=== PATIENT | male | born 1965 | race American Indian/Alaskan Native ===

== ENCOUNTER 2023-04-14 22:20 | Emergency (ER) | payer MEDICAID, SELFPAY ==
--- NOTE | ~2023-04-14 | XR_ITS ---
EXAMINATION: XR CHEST CLINICAL INFORMATION: Cough, rib pain. COMPARISON: None available. TECHNIQUE: Frontal view of the chest was obtained. FINDINGS: Normal appearance of the cardiomediastinal silhouette. No focal airspace opacities, pleural effusion or pneumothorax. No acute osseous findings. Visualized upper abdomen is within normal limits. XR/XR chest 1V IMPRESSION: No acute cardiopulmonary findings. No acutely displaced rib fractures.
[2023-04-14 22:29] VITALS: BP 168/118; PULSE 76; RESP 18; TEMP 36.9; O2SAT 97; BMI 33.2
--- NOTE | 2023-04-14 22:47 | MHC.EDTECH ---
Patient brought into triage area,Strep,and Sars/Flu/RSV obtained and sent to lab. Patient brought back to waiting area.
[2023-04-14 23:15] LABS: IDNOW Serial# 08D9AD1C; Strep A Nucleic Acid Negative (Negative)
[2023-04-14 23:42] LABS: Influenza A PCR NEGATIVE (Negative); Influenza B PCR NEGATIVE (Negative); Resp Syncy Virus RNA Qual PCR NEGATIVE (Negative); SARS COV2 PCR INHOUSE NEGATIVE (Negative)
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
[2023-04-15 04:44] LABS: Basophils Percent Auto 0.5 % (0-2); Eosinophils Absolute Auto 0.4 X10*3/uL (0.0-0.4); Eosinophils Percent Auto 4.8 % (0-4); Hematocrit 42.9 % (42.0-52.0); Hemoglobin 14.9 g/dl (14.0-18.0); Imm Gran Abs Auto 0.02 X10*3/uL (0.00-0.03); Imm Gran Pct Auto 0.2 % (0.0-0.4); Lymphocytes Absolute Auto 2.3 X10*3/uL (1.2-4.9); Lymphocytes Percent Auto 27.6 % (20-40); MANUAL DIFF FLAG NO; Mean Corpuscular HGB Conc 34.7 g/dl (31.0-36.0); Mean Corpuscular Hemoglobin 29.7 pg (27.0-33.0); Mean Corpuscular Volume 85.6 fL (80.0-98.0); Mean Platelet Volume 9.1 fL (9.4-12.4); Monocytes Absolute Auto 0.8 X10*3/uL (0.1-1.2); Monocytes Percent Auto 9.6 % (2-11); Neutrophils Absolute Auto 4.8 x10*3/uL (2.0-8.3); Neutrophils Percent Auto 57.3 % (45-73); Platelet Count 278 X10*3/uL (160-400); Red Blood Count 5.01 X10*6/uL (4.60-5.80); Red Cell Distribution Width 12.1 % (11.0-16.0); White Blood Count 8.3 X10*3/uL (4.8-10.8)
[2023-04-15 04:57] LABS: Alanine Aminotransferase 38 U/L (0-40); Albumin Level 4.3 g/dL (3.5-5.0); Alkaline Phosphatase 53 U/L (39-117); Anion Gap 13 (12-20); Aspartate Amino Transferase 28 U/L (5-37); Bilirubin Total 0.4 mg/dL (0.0-1.0); Blood Urea Nitrogen 10 mg/dL (9-16); Calcium 9.3 mg/dL (8.4-10.2); Carbon Dioxide 25 mmol/L (22-29); Chloride 107 mmol/L (96-108); Creatinine Clr Calc Pharmacy 112.8; Estimated Glomerular Filt Rate > 60; Glucose Random 102 mg/dL (60-115); Potassium 3.4 mmol/L (3.3-5.1); Sodium 142 mmol/L (135-145); Total Protein 7.3 g/dL (6.5-8.0)
--- NOTE | 2023-04-15 05:04 | PC.NURSE ---
Pt left stating he has to go to work at this time. Pt out of department with steady gait and all personal belongings in no apparent distress.
== END 2023-04-15 05:07 | disposition left against medical advice (07) ==
PROVIDERS: Emergency Provider Emergency Medicine
DX: R05.9 Cough, unspecified (principal); R10.9 Unspecified abdominal pain; R07.81 Pleurodynia; Z20.822 Contact with and (suspected) exposure to COVID-19; Z20.828 Contact with and (suspected) exposure to other viral communicable diseases; Z79.899 Other long term (current) drug therapy
CPT/HCPCS: 0241U; 36415; 71045; 80053; 85025; 87651; 99283; 99284

== ENCOUNTER 2023-06-23 14:31 | Emergency (ER) | payer MEDICAID, SELFPAY ==
--- NOTE | ~2023-06-23 | CT_ITS ---
CT HEAD WITHOUT IV CONTRAST CT CERVICAL SPINE WITHOUT IV CONTRAST INDICATION: Fall with head strike and pain. COMPARISON: None available. TECHNIQUE: Multidetector CT acquisitions of the head and cervical spine were obtained without IV contrast. Multiplanar reformats were acquired and utilized for image interpretation. This CT examination was performed using dose optimization techniques as appropriate, variously including the following: *Automated exposure control *Adjustment of mA and/or kV according to patient size (this includes techniques or standardized protocols for targeted exams where dose is matched to indication/reason for exam; i.e. extremities or head) *Use of iterative reconstruction technique FINDINGS: HEAD: There is no intracranial hemorrhage, hydrocephalus, extra-axial surface collection, midline shift, or other herniation pattern. [place] to white matter differentiation is diffusely maintained without evidence of an evolved acute territorial infarct. The basilar cisterns are preserved. No significant soft tissue abnormality. No acute osseous abnormality. The paranasal sinuses and the mastoid air cells are well aerated. CERVICAL SPINE: There is degenerative retrosubluxation of C3 on C4 and there is degenerative anterior subluxation of C6 on C7. There is multilevel hypertrophic facet arthropathy. Moderate to severe degenerative disc disease at C3-C4 and C5-C6. Hypertrophic degenerative changes involving the atlantodental interval. Uncovertebral joint spurring and facet arthropathy result in severe left and moderate right C3-C4 and moderate left C5-C6 bony foraminal stenosis. There is no prevertebral soft tissue swelling. Imaged lung apices are clear. CT/CT cervical spine wo IV con IMPRESSION: - No acute intracranial abnormality. - No acute osseous abnormality within the cervical spine. Cervical spondylosis.
--- NOTE | ~2023-06-23 | XR_ITS ---
EXAMINATION: Left humerus. Left hand wrist.. CLINICAL INFORMATION: Pain, injury. COMPARISON: None available. TECHNIQUE: AP and lateral views of the left humerus. 4 views left hand. FINDINGS: LEFT HUMERUS: There is no visible fracture or bony abnormality involving left humerus. The glenohumeral humeral joint space and partially visualized elbow joint appears unremarkable. The soft tissues are normal. LEFT HAND/WRIST: There is no visible acute fracture, dislocation or subluxation. The soft tissues are normal. XR/XR humerus LT IMPRESSION: Unremarkable left humerus. Unremarkable left hand wrist.
--- NOTE | ~2023-06-23 | XR_ITS ---
EXAMINATION: Left humerus. Left hand wrist.. CLINICAL INFORMATION: Pain, injury. COMPARISON: None available. TECHNIQUE: AP and lateral views of the left humerus. 4 views left hand. FINDINGS: LEFT HUMERUS: There is no visible fracture or bony abnormality involving left humerus. The glenohumeral humeral joint space and partially visualized elbow joint appears unremarkable. The soft tissues are normal. LEFT HAND/WRIST: There is no visible acute fracture, dislocation or subluxation. The soft tissues are normal. XR/XR hand wrist LT IMPRESSION: Unremarkable left humerus. Unremarkable left hand wrist.
--- NOTE | ~2023-06-23 | CT_ITS ---
CT HEAD WITHOUT IV CONTRAST CT CERVICAL SPINE WITHOUT IV CONTRAST INDICATION: Fall with head strike and pain. COMPARISON: None available. TECHNIQUE: Multidetector CT acquisitions of the head and cervical spine were obtained without IV contrast. Multiplanar reformats were acquired and utilized for image interpretation. This CT examination was performed using dose optimization techniques as appropriate, variously including the following: *Automated exposure control *Adjustment of mA and/or kV according to patient size (this includes techniques or standardized protocols for targeted exams where dose is matched to indication/reason for exam; i.e. extremities or head) *Use of iterative reconstruction technique FINDINGS: HEAD: There is no intracranial hemorrhage, hydrocephalus, extra-axial surface collection, midline shift, or other herniation pattern. [place] to white matter differentiation is diffusely maintained without evidence of an evolved acute territorial infarct. The basilar cisterns are preserved. No significant soft tissue abnormality. No acute osseous abnormality. The paranasal sinuses and the mastoid air cells are well aerated. CERVICAL SPINE: There is degenerative retrosubluxation of C3 on C4 and there is degenerative anterior subluxation of C6 on C7. There is multilevel hypertrophic facet arthropathy. Moderate to severe degenerative disc disease at C3-C4 and C5-C6. Hypertrophic degenerative changes involving the atlantodental interval. Uncovertebral joint spurring and facet arthropathy result in severe left and moderate right C3-C4 and moderate left C5-C6 bony foraminal stenosis. There is no prevertebral soft tissue swelling. Imaged lung apices are clear. CT/CT head/brain wo IV con IMPRESSION: - No acute intracranial abnormality. - No acute osseous abnormality within the cervical spine. Cervical spondylosis.
[2023-06-23 14:33] VITALS: BP 189/90; PULSE 84; RESP 17; TEMP 36.8; O2SAT 99; BMI 33.2
--- NOTE | 2023-06-23 14:33 | ED.GENADULT ---
HPI - General Adult General Chief complaint: Extremity Injury, Upper Stated complaint: Arm injury @ work Time Seen by Provider: 06/23/23 15:47 Source: patient Mode of arrival: ambulatory Limitations: no limitations History of Present Illness HPI narrative: Patient is a 57 year old assigned male at with no reported medical history presenting to the emergency department today with left arm pain after a fall. Patient states that he fell out of a tractor trailer at work and landed on his left arm. Patient denies any head strike, loss of consciousness, dizziness, lightheadedness, abdominal pain, nausea, vomiting, fever, chills, blurry vision, double vision, loss of vision, chest pain, difficulty breathing, shortness of breath, back pain, night sweats, pain with urination, increased urinary frequency, increased urinary urgency, blood in his urine or stool, syncope or a near syncopal episode, bowel incontinence, bladder incontinence, bowel retention, bladder retention, or any other complaints at this time. Onset (ago): hour(s) Location: left and upper extremity Radiation: non-radiation Severity: mild Severity scale (1-10): 4 Quality: aching and dull Pain Consistency: constant Relieving factors: none Exacerbating factors: none Associated symptoms: denies other symptoms Treatments prior to arrival: none Related Data Allergies Allergy/AdvReac Type Severity Reaction Status Date / Time No Known Allergies Allergy Verified 04/14/23 22:32 Review of Systems Constitutional: Constitutional: Reports no additional constitutional complaints, Denies chills, Denies fever(s) and Denies night sweats Eyes: Eyes: Reports no additional eye complaints, Denies blurry vision, Denies change in vision, Denies diplopia, Denies eye discharge, Denies loss of vision and Denies eye pain ENT: Denies dizziness Cardiovascular: Cardiovascular: Reports no additional cardiovascular complaints, Denies chest pain, Denies lightheadedness, Denies Loss of Consciousness and Denies dyspnea Respiratory: Respiratory: Reports no additional respiratory complaints and Denies dyspnea Gastrointestinal: Gastrointestinal: Reports no additional gastrointestinal complaints, Denies abdominal pain, Denies melena, Denies hematochezia, Denies change in bowel habits and Denies change in stool character Genitourinary: Genitourinary: Reports no additional male genitourinary complaints, Denies hematuria, Denies oliguria, Denies difficulty urinating, Denies dysuria, Denies urinary frequency, Denies urinary hesitancy, Denies urinary incontinence and Denies urinary urgency Musculoskeletal: Musculoskeletal: Reports no additional musculoskeletal complaints, Denies numbness and Denies tingling Comments: left arm and hand pain Neurologic: Denies dizziness, Denies loss of vision, Denies numbness and Denies tingling Psychiatric: Psychiatric: Reports no additional psychiatric complaints Endocrine: Endocrine: Reports no additional endocrine complaints Hematologic/Lymphatic: Hematologic/Lymphatic: Reports no additional hematologic/lymphatic complaints Allergic/Immunologic: Allergic/Immunologic: Reports no additional allergic/immunologic complaints FOR[facility]LY [facility] Past Medical History Attestation statement: The following information was validated with the patient. Source: old records reviewed and nursing notes reviewed Social History Social History Advance Directives: No Advance Directives Information Provided: No Physical Exam ED Vital Signs: Vital Signs - 24 hr 06/23/23 14:33 Temperature 98.3 F Pulse Rate 84 Respiratory Rate 17 Blood Pressure 189/90 H Pulse Oximetry 99 Oxygen Delivery Method Room Air BMI result Body Mass Index 33.2 Const General: cooperative, no acute distress, alert and awake Nutritional Appearance: well nourished Orientation/consciousness: patient oriented x3 Limitations: no limitations HENMT Head: Yes normal to inspection and Yes atraumatic Ears: hearing grossly normal bilaterally and external ears normal General nose exam: Normal external nose present, no nasal discharge noted and no epistaxis Face and sinus: Yes normal facial exam, No abrasion and No laceration Mouth: Normal oral and palatal mucosa present, no drooling and no muffled voice Eyes General: appearance normal, both eyes and all related structures Periorbital: periorbital findings normal Eyelids: Yes eyelids normal Conjunctivae: conjunctivae normal Pupils: Equal, round and reactive pupils present EOM: EOMs intact bilaterally Neck Neck: Yes normal visual inspection, Yes full ROM and Yes no lymphadenopathy Chest Chest palpation & inspection: normal inspection of the chest Resp Effort & Inspection: normal respiratory effort and able to speak in complete sentences GI Inspection: Yes normal to inspection Neuro General: patient oriented x3 and moves all extremities Cranial nerves: Yes Equal, round and reactive pupils present Cognition (Neuro): normal cognition Motor exam (neuro): 5/5 motor strength present throughout Sensory Exam: Normal double simultaneous stimulation for sensation Coordination: [id number] test normal Extrem General: Yes normal to inspection, Yes full ROM and Yes capillary refill normal Psych Appearance: grossly normal Mental Status: mental status grossly normal Affect: normal affect Attitude: cooperative Thought process: Normal thought process present Thought content: Normal thought content present Insight: Good insight present (Psych) Course Course Course Narrative: RME performed by Funmilayo Naqvi PA-C. Patient is a 57 year old assigned male at presenting to the emergency department with left arm pain after a work injury. Detailed physical exam and review of systems are deferred to the manager net. Imaging. Patient placed back in the waiting room pending room availability and results. Medical Decision Making Medical Decision Making MDM Narrative: Patient is a 57 year old assigned male at with no reported medical history presenting to the emergency department today with left arm pain. Patient's physical exam was unremarkable. Patient's left humerus, hand, and wrist x-rays showed no acute process. Patient's head and C-Spine CTs were negative. I explained my physical exam findings as well as all test results to the patient. I answered all questions asked by the patient. I stressed the importance of the patient taking his medication as prescribed. I stressed the importance of the patient following up with his primary care provider. I stressed the importance of the patient returning to the emergency department immediately if his symptoms were to worsen or if he were to develop any dizziness, shortness of breath, difficulty breathing, chest pain, blurry vision, loss of vision, nausea, vomiting, abdominal pain, fever, chills, back pain, or any other complaints. Patient verbalized agreement and understanding with this treatment plan and discharge. Differential Diagnosis Differential Diagnoses: The differential diagnosis associated with the presentation includes Left arm pain Left arm sprain Left arm strain Fall Admission/Observation Consideration of admission/observation: Escalation of care including admission/observation considered Patient would have been admitted to the hospital had his work up had any findings where hospital admission was appropriate and his clinical presentation warranted hospital admission. Independent Interpretation I performed an independent interpretation of an: Plain X-Ray and CT Scan Interpretation: My interpretation is in agreement with the radiologist's impression of these imaging studies. EXAMINATION: Left humerus. Left hand wrist.. CLINICAL INFORMATION: Pain, injury. COMPARISON: None available. TECHNIQUE: AP and lateral views of the left humerus. 4 views left hand. FINDINGS: LEFT HUMERUS: There is no visible fracture or bony abnormality involving left humerus. The glenohumeral humeral joint space and partially visualized elbow joint appears unremarkable. The soft tissues are normal. LEFT HAND/WRIST: There is no visible acute fracture, dislocation or subluxation. The soft tissues are normal. XR/XR hand wrist LT IMPRESSION: Unremarkable left humerus. Unremarkable left hand wrist. Dictated By: Nate López MD Signed By: Electronically signed by Nate López MD 06/23/[address] HEAD WITHOUT IV CONTRAST CT CERVICAL SPINE WITHOUT IV CONTRAST INDICATION: Fall with head strike and pain. COMPARISON: None available. TECHNIQUE: Multidetector CT acquisitions of the head and cervical spine were obtained without IV contrast. Multiplanar reformats were acquired and utilized for image interpretation. This CT examination was performed using dose optimization techniques as appropriate, variously including the following: *Automated exposure control *Adjustment of mA and/or kV according to patient size (this includes techniques or standardized protocols for targeted exams where dose is matched to indication/reason for exam; i.e. extremities or head) *Use of iterative reconstruction technique FINDINGS: HEAD: There is no intracranial hemorrhage, hydrocephalus, extra-axial surface collection, midline shift, or other herniation pattern. [place] to white matter differentiation is diffusely maintained without evidence of an evolved acute territorial infarct. The basilar cisterns are preserved. No significant soft tissue abnormality. No acute osseous abnormality. The paranasal sinuses and the mastoid air cells are well aerated. CERVICAL SPINE: There is degenerative retrosubluxation of C3 on C4 and there is degenerative anterior subluxation of C6 on C7. There is multilevel hypertrophic facet arthropathy. Moderate to severe degenerative disc disease at C3-C4 and C5-C6. Hypertrophic degenerative changes involving the atlantodental interval. Uncovertebral joint spurring and facet arthropathy result in severe left and moderate right C3-C4 and moderate left C5-C6 bony foraminal stenosis. There is no prevertebral soft tissue swelling. Imaged lung apices are clear. CT/CT cervical spine wo IV con IMPRESSION: - No acute intracranial abnormality. - No acute osseous abnormality within the cervical spine. Cervical spondylosis. Dictated By: Flaco Pal MD Signed By: Electronically signed by Flaco Pal MD 06/23/23 1529 Radiology Impression Discussion of test interpretation with radiology: I have reviewed the radiologist's reading. Discharge Plan Discharge Clinical Impression: Fall Patient Disposition: Home, Self-Care Instructions: Fall Prevention (ED) Additional Instructions: Follow up with your primary care provider. Return to the emergency department immediately if your symptoms worsen or if you develop any dizziness, shortness of breath, difficulty breathing, chest pain, blurry vision, loss of vision, nausea, vomiting, abdominal pain, fever, chills, back pain, or any other complaints. Referrals: [facility] [place] [facility] [[place] Group] (Call to establish and follow up with a primary care provider. If you already have a primary care provider, please follow up with them.) [facility] [place] [facility] [Provider Group] (Call to establish and follow up with a primary care provider. If you already have a primary care provider, please follow up with them.) [facility] [place] [facility] [Provider Group] (Call to establish and follow up with a primary care provider. If you already have a primary care provider, please follow up with them.) Print Language: Pashto
== END 2023-06-23 16:01 | disposition home or self-care (01) ==
PROVIDERS: Emergency Provider Emergency Medicine
DX: Z04.3 Encounter for examination and observation following other accident (principal); M79.602 Pain in left arm; R51.9 Headache, unspecified; Z91.81 History of falling
CPT/HCPCS: 70450; 72125; 73060; 73110; 73130; 99282; 99284

== ENCOUNTER 2023-12-08 13:44 | Outpatient (AMB) | payer MEDICAID, SELFPAY ==
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
[2023-12-08 13:49] VITALS: BP 150/92; PULSE 86; RESP 12; O2SAT 99; BMI 31.2
== END 2023-12-08 14:34 | disposition home or self-care (01) ==
PROVIDERS: PCP Internal Medicine; Visit Provider Internal Medicine
DX: M25.511 Pain in right shoulder (principal); G89.29 Other chronic pain; M15.0 Primary generalized (osteo)arthritis; M50.30 Other cervical disc degeneration, unspecified cervical region; I10 Essential (primary) hypertension; E78.5 Hyperlipidemia, unspecified; Z13.0 Encounter for screening for diseases of the blood and blood-forming organs and certain disorders involving the immune mechanism; Z13.228 Encounter for screening for other metabolic disorders; Z76.89 Persons encountering health services in other specified circumstances
CPT/HCPCS: 99204

== ENCOUNTER 2023-12-08 14:35 | Outpatient (REF) | payer MEDICAID, SELFPAY ==
[2023-12-08 17:27] LABS: MANUAL DIFF FLAG NO
[2023-12-08 17:30] LABS: Basophils Absolute Auto 0.1 X10*3/uL (0.0-0.2); Basophils Percent Auto 0.8 % (0-2); Eosinophils Absolute Auto 0.2 X10*3/uL (0.0-0.4); Eosinophils Percent Auto 1.8 % (0-4); Hemoglobin 15.9 g/dl (14.0-18.0); Imm Gran Abs Auto 0.02 X10*3/uL (0.00-0.03); Imm Gran Pct Auto 0.2 % (0.0-0.4); Lymphocytes Absolute Auto 1.8 X10*3/uL (1.2-4.9); Lymphocytes Percent Auto 19.3 % (20-40); Mean Corpuscular HGB Conc 34.6 g/dl (31.0-36.0); Mean Corpuscular Hemoglobin 29.9 pg (27.0-33.0); Mean Corpuscular Volume 86.5 fL (80.0-98.0); Mean Platelet Volume 9.9 fL (9.4-12.4); Monocytes Absolute Auto 0.8 X10*3/uL (0.1-1.2); Monocytes Percent Auto 8.7 % (2-11); Neutrophils Absolute Auto 6.4 x10*3/uL (2.0-8.3); Neutrophils Percent Auto 69.2 % (45-73); Platelet Count 334 X10*3/uL (160-400); Red Blood Count 5.32 X10*6/uL (4.60-5.80); Red Cell Distribution Width 12.1 % (11.0-16.0); White Blood Count 9.2 X10*3/uL (4.8-10.8)
[2023-12-08 17:39] LABS: Estimated Average Glucose 117 mg/dL; Hemoglobin A1c % 5.7 % (<6.0)
[2023-12-08 17:58] LABS: Alanine Aminotransferase 40 U/L (0-40); Albumin Level 4.7 g/dL (3.5-5.0); Alkaline Phosphatase 68 U/L (39-117); Anion Gap 16 (12-20); Aspartate Amino Transferase 27 U/L (5-37); Bilirubin Total 0.8 mg/dL (0.0-1.0); Blood Urea Nitrogen 12 mg/dL (9-16); Carbon Dioxide 22 mmol/L (22-29); Chloride 109 mmol/L (96-108); Cholesterol 191 mg/dL (<200); Estimated Glomerular Filt Rate > 60; Glucose Random 94 mg/dL (60-115); HDL Cholesterol 31 mg/dL (>40); LDL Cholesterol Calculated 123 mg/dL (<100); Potassium 4.1 mmol/L (3.3-5.1); Sodium 143 mmol/L (135-145); Total Protein 7.6 g/dL (6.5-8.0); Triglycerides 187 mg/dL (<150)
[2023-12-08 18:18] LABS: Prostate Specific Antigen 0.96 ng/mL (<0.05-4.0)
[2023-12-13 10:53] LABS: Cyclic Citrullinated Peptide <16 UNITS
== END 2023-12-08 14:36 | disposition home or self-care (01) ==
LOC: HO.WFDLDS 14:35
PROVIDERS: Visit Provider Internal Medicine
DX: E78.5 Hyperlipidemia, unspecified (principal); M15.9 Polyosteoarthritis, unspecified; I10 Essential (primary) hypertension; Z13.0 Encounter for screening for diseases of the blood and blood-forming organs and certain disorders involving the immune mechanism; Z13.228 Encounter for screening for other metabolic disorders
CPT/HCPCS: 36415; 80053; 80061; 83036; 84153; 85025; 86200; 86431

== ENCOUNTER 2024-10-02 21:24 | Emergency (ER) | payer MEDICAID, SELFPAY ==
--- NOTE | ~2024-10-02 | XR_ITS ---
CLINICAL HISTORY: pain 3 views lumbar spine Comparison: None provided Findings: There is straightening of the normal lumbar lordosis. No lumbar spondylolisthesis. No acute fractures or dislocation. Mild degenerative endplate changes are present at the lumbar spine. IMPRESSION: 1. Straightening of the normal lumbar lordosis. This finding is nonspecific and may be positional and/or related to muscle spasm. No acute fracture or dislocation injury identified at the lumbar spine. This document has been electronically signed by: Jairo Anthony MD on 10/02/2024 23:53:34
[2024-10-02 21:26] VITALS: BP 127/75; PULSE 87; RESP 20; TEMP 36.1; O2SAT 96; BMI 31.7
--- NOTE | 2024-10-03 01:16 | ED_ITS ---
HPI - Back Pain/Injury General Chief Complaint: Back Pain/Injury Stated Complaint: lower back pain Time Seen by Provider: 10/03/24 01:16 Source: patient and family () Mode of arrival: ambulatory Limitations: no limitations History of Present Illness ED Provider: Dr. Christoph Albright HPI Narrative: 58-year-old male with a history of hypertension, hyperlipidemia, depression, cervical degenerative joint disease who presents emergency department for evaluation of lower back pain x3 days. Patient does not recount any specific injury but has a very physical job. Patient states 3 days prior he developed a pain in his lower back to the point where it has gotten progressively worse and he is unable to move. He points to his left lower back when asked to localize the pain. He stents describes the pain is a sharp, spasm like pain which is worse with movement. States that the pain shoots up his spine to his neck and down both legs. States that he is feeling very weak in his having difficulty walking secondary to the severity of his pain. The patient states that his pain is currently greater than 10/10. He denies any loss of bowel or bladder control. He denies fever or chills. Patient denies using injection drugs. Patient took his 's prescribed muscle relaxant with no relief his pain. He did not take any other medications. Related Data Home Medications ?Medication ?Instructions ?Recorded ?Confirmed albuterol sulfate 90 mcg/actuation 2 puff inhalation Q 6H 12/08/23 aerosol inhaler (Ventolin HFA) azelastine 137 mcg-fluticasone 50 1 spray intranasal B ID 12/08/23 mcg/spray nasal spray prazosin 1 mg capsule 1 mg PO DAILY 12/08/23 sertraline 100 mg tablet 100 mg PO DAILY 12/08/23 Previous Rx's ?Medication ?Instructions ?Recorded lisinopril 40 mg tablet 40 mg PO DAILY #90 tabs 11/16 07/08 cyclobenzaprine 10 mg tablet 10 mg PO TID PRN muscle p ain or 10/03/24 spasm #20 tabs morphine 15 mg immediate release 15 mg PO Q4-6H PRN pa in #14 tabs 10/03/24 tablet naproxen 500 mg tablet 500 mg PO BID PRN pain 7 day s #14 10/03/24 tabs Allergies Allergy/AdvReac Type Severity Reaction Status Date / Time No Known Allergies Allergy Verified 10/02/24 21:30 Review of Systems Review of Systems: Yes all other systems are reviewed and are negative [facility] Past Medical History [facility] Narrative: Social history: The patient denies tobacco, alcohol and drug use. Patient states that he was in [facility] years And he was released 2 years prior. He currently lives with his in an apartment. Medical History ADHD Surgical History History of appendectomy Family History Family History Other Family history unknown Social History Social History Household Members: Other Housing: Homeless Alcohol intake: never Patient Tobacco Use Status: Never used Tobacco Smoked in Last 30 Days: No e-Cigarette/Vaping Use: Never Used Use of substances other than those prescribed or required for medical reasons: No Advance Directives: No service: No Current occupational status: disabled Current occupational exposures/hazards: No Cognitive needs: No Hearing needs: Yes (L ear ) Vision needs: No Physical Exam Vital Signs: Vital Signs: Last Vital Signs Temp 98.1 F 10/03/24 04:10 Pulse 68 10/03/24 04:10 Resp 16 10/03/24 04:10 BP 154/92 H 10/03/24 04:10 Pulse Ox 98 10/03/24 01:50 O2 Del Method Room Air, Blow By 10/03/24 04:10 BMI result Body Mass Index 31.7 vital signs were normal Exam: General: Awake, alert in no distress Head: Normocephalic, atraumatic EENT: PERRL, Lids normal, sclera normal, conjunctiva normal, nose normal , ears normal, throat without erythema or exudates Neck: Supple, no adenopathy Lung: breath sounds symmetric, no wheezing, rales or rhonchi Chest: symmetric movement, nontender Heart: regular rate and rhythm, normal S1, S2 no murmurs or rubs Abdomen: soft, non-tender, nondistended, normal bowel sounds Back: there is tenderness to palpation of his lumbar sacral vertebrae with no localizing point tenderness, patient has significant tenderness palpation of his lumbar sacral paraspinal muscles on the left with significant spasm of these muscles in only mild tenderness with palpation of these muscles on the right. Patient has positive straight leg raises bilaterally, there is no erythema increased warmth or lesions noted to his skin in his back. Extremities: no deformities, moves all extremities symmetrically Neuro: General:Awake, alert, oriented, normal speech Cranial nerves:cranial nerves intact Strength: Patient has normal symmetric upper extremity strength, the patient has diminished strength to his lower extremities secondary to his pain Psych: Pleasant, cooperative Medications Administered Discontinued Medications Generic Name Dose Route Start Last Admin Trade Name Freq PRN Reason Stop Dose Admin Cyclobenzaprine HCl 10 mg 10/03/24 01:44 10/03/24 02:00 Cyclobenzaprine Hcl 10 Mg Tablet PO 10/03/24 01:45 10 mg ONCE ONE Administration Ketorolac Tromethamine 30 mg 10/03/24 01:44 10/03/24 01:59 Ketorolac Tromethamine 15 Mg/Ml Vial IVPUSH 10/03/24 01:45 30 mg ONCE STA Administration Morphine Sulfate 4 mg 10/03/24 01:44 10/03/24 03:18 Morphine Sulfate 4 Mg/Ml Cartridge IVPUSH 4 mg Q20M PRN Administration Pain, Severe (Pain Scale 7-10) Protocol Medical Decision Making Medical Decision Making MDM Narrative: 58-year-old male with a history of hypertension, hyperlipidemia, depression, cervical degenerative joint disease who presents emergency department for evaluation of lower back pain x3 days. Patient does not recount any specific injury but has a very physical job. Patient states 3 days prior he developed a pain in his lower back to the point where it has gotten progressively worse and he is unable to move. He points to his left lower back when asked to localize the pain. He stents describes the pain is a sharp, spasm like pain which is worse with movement. States that the pain shoots up his spine to his neck and down both legs. States that he is feeling very weak in his having difficulty walking secondary to the severity of his pain. The patient states that his pain is currently greater than 10/10. He denies any loss of bowel or bladder control. He denies fever or chills. Patient denies using injection drugs. Patient took his 's prescribed muscle relaxant with no relief his pain. He did not take any other medications. Vital signs were normal. Physical examination revealed tenderness palpation of his lumbar sacral vertebrae with no localizing point tenderness, tenderness with palpation of his left paraspinal muscles with spasm of these muscles. Differential diagnosis: Includes but is not limited to Degenerative joint disease, degenerative disc disease, sciatica, musculoskeletal injury, muscle spasm Course: 01:56 Patient's physical findings are consistent with severe muscle spasm of the left lumbar sacral paraspinal muscles most likely caused by musculoskeletal injury. The lumbar sacral spine x-rays revealed no acute findings to explain the patient's pain. Ice was applied to the patient's Left lower back. I ordered morphine 4 mg IV Q 20 minutes PRN pain, Toradol 30 mg IV and Flexeril 10 mg orally . At the end of my shift, the patient's care was turned over to my colleague, Dr. Zenaida Patino. I received sign-out from my colleague Dr. Albright patient states that he feels much better and actually feels well enough to go home. Discussed with the patient to follow-up with his primary care physician, patient may need physical therapy. Patient agrees with plan Admission/Observation Consideration of admission/observation: Escalation of care including admission/observation considered ( yes) Radiology Impression Discussion of test interpretation with radiology: I have reviewed the radiologist's reading. Radiologist Impression: 3 views lumbar spine Comparison: None provided Findings: There is straightening of the normal lumbar lordosis. No lumbar spondylolisthesis. No acute fractures or dislocation. Mild degenerative endplate changes are present at the lumbar spine. IMPRESSION: 1. Straightening of the normal lumbar lordosis. This finding is nonspecific and may be positional and/or related to muscle spasm. No acute fracture or dislocation injury identified at the lumbar spine. This document has been electronically signed by: Jairo Anthony MD on 10/02/2024 23:53:34 Independent Historian Clinical information obtained from an independent historian. History obtained from or confirmed by: Spouse External Record Review External record reviewed: Inpatient record Prescription Management I considered prescription management with: Pain Medication ( naproxen, morphine) and Other anti spasmodic: Flexeril Chronic Conditions Patient?s care impacted by: Hypertension and Other ( hypercholesterolemia) Discharge Plan Discharge Clinical Impression: Lumbar paraspinal muscle spasm Lumbar back sprain Qualifiers: Encounter type: initial encounter Qualified Code(s): S33.5XXA - Sprain of ligaments of lumbar spine, initial encounter Patient Disposition: Home, Self-Care Instructions: Muscle Spasm (ED) Additional Instructions: Your lumbar spine x-rays revealed mild arthritis but no significant finding to explain your pain. Your physical examination did reveal significant tenderness and spasm of the muscles of your left lower back. You were treated here in the emergency department with morphine and Toradol IV and Flexeril (cyclobenzaprine) orally. Apply ice for 15 minutes 4 to 6 times a day to your left lower back to try to reduce the pain and inflammation in your muscles. Take naproxen 500 mg pills, 1 pill every 12 hours for 5 day. This has an anti- inflammatory pain medication. Take Tylenol (acetaminophen) 2 pills every 6 hours as needed for pain. Take Flexeril (cyclobenzaprine) 10 mg pills, 1 pill every 6-8 hours as needed for pain or spasm. This medication will make you sleepy. Do not drive or work while taking this medication. For pain not relieved by Flexeril, naproxen or Tylenol take morphine 15 mg pills, 1 pill every 6 hours as needed for pain. This medication will make you sleepy, do not drive or work while taking this medication. Morphine is a narcotic medication and can be addicting. If you are concerned about addiction you can ask the pharmacist for less pills or do not get this prescription filled. Follow-up with your doctor in 2 days. Please return to the emergency department if your symptoms get worse or if you develop any symptoms that are concerning to you. Prescriptions: New cyclobenzaprine 10 mg tablet 10 mg PO TID PRN (Reason: muscle pain or spasm) Qty: 20 0RF morphine 15 mg tablet 15 mg PO Q4-6H PRN (Reason: pain) Qty: 14 0RF Rx Instructions: Partial Fill upon patient request. naproxen 500 mg tablet 500 mg PO BID PRN (Reason: pain) 7 Days Qty: 14 0RF No Action prazosin 1 mg capsule 1 mg PO DAILY albuterol sulfate [Ventolin HFA] 90 mcg/actuation HFA aerosol inhaler 2 puff inhalation Q6H sertraline 100 mg tablet 100 mg PO DAILY azelastine-fluticasone 137-50 mcg/spray spray,non-aerosol 1 spray intranasal BID Rx Instructions: administer into each nostril lisinopril 40 mg tablet 40 mg PO DAILY Qty: 90 3RF Interventions: ED Discharge Assessment Last Done: 10/03/24 04:10 Discharge Date/Time: 10/03/24 04:22 Print Language: Other
[2024-10-03 01:50] VITALS: BP 166/90; PULSE 87; RESP 16; TEMP 36.6; O2SAT 98
[2024-10-03] MEDS: Ketorolac Tromethamine 15 MG/ML VIAL 30 MG IVPUSH (01:59)
[2024-10-03] MEDS: Cyclobenzaprine HCl 10 MG TABLET PO (02:00)
[2024-10-03] MEDS: Morphine Sulfate 4 MG/ML CARTRIDGE IVPUSH ×3 (02:00→03:18)
[2024-10-03 04:01] VITALS: BP 154/92; PULSE 68; RESP 16; TEMP 36.7
[2024-10-03 04:10] VITALS: BP 154/92; PULSE 68; RESP 16; TEMP 36.7
== END 2024-10-03 04:22 | disposition home or self-care (01) ==
PROVIDERS: Emergency Provider Emergency Medicine Emergency Medical Services; PCP Internal Medicine
DX: S33.5XXA Sprain of ligaments of lumbar spine, initial encounter (principal); M54.50 Low back pain, unspecified; R26.2 Difficulty in walking, not elsewhere classified; X58.XXXA Exposure to other specified factors, initial encounter; Y93.9 Activity, unspecified; Y92.9 Unspecified place or not applicable; Y99.8 Other external cause status; Z79.899 Other long term (current) drug therapy
CPT/HCPCS: 72100; 96374; 96375; 99284; J1885; J2270

== ENCOUNTER → 2024-10-02 21:35 | Outpatient (BNV) | payer MEDICAID, SELFPAY | PROVIDERS: PCP Internal Medicine; Visit Provider Radiology Diagnostic Radiology | DX: M54.50 Low back pain, unspecified (principal) | CPT/HCPCS: 72100 ==